=== PATIENT | female | born 1965 | race Caucasian/White ===

== ENCOUNTER 2022-09-09 11:42 | Emergency (ER) | payer BC ==
[~2022-09-09] VITALS: Ht 157.4 cm; Wt 73.0 kg
[2022-09-09 11:59] VITALS: BP 132/95
[2022-09-09] MEDS ORDERED: CELECOXIB100 M1 PO (12:00)
[2022-09-09] MEDS ORDERED: METOPROLOL SUCC25 M2 PO (12:01)
[2022-09-09] MEDS ORDERED: MONTELUKAST SOD10 MG PO (12:01)
[2022-09-09] MEDS ORDERED: BUSPIRONE HCL30 MG PO (12:01)
[2022-09-09] MEDS ORDERED: ESZOPICLONE3 MG PO (12:01)
[2022-09-09] MEDS ORDERED: SUMATRIPTAN SU100 M1 PO (12:02)
[2022-09-09] MEDS ORDERED: AZELASTINE137 MCG/0. NAS (12:02)
[2022-09-09] MEDS ORDERED: TRAMADOL HCL50 MG PO ×3 (13:05→13:41)
== END 2022-09-09 13:43 | disposition home or self-care (01) ==
LOC: ED 11:42
DX: S93.402A Sprain of unspecified ligament of left ankle, initial encounter (principal); G43.909 Migraine, unspecified, not intractable, without status migrainosus; Z88.8 Allergy status to other drugs, medicaments and biological substances; Z98.890 Other specified postprocedural states; Z98.51 Tubal ligation status; X50.1XXA Overexertion from prolonged static or awkward postures, initial encounter; Y93.89 Activity, other specified; Y92.89 Other specified places as the place of occurrence of the external cause; Y99.8 Other external cause status

== ENCOUNTER → 2023-03-13 | Outpatient (CLI) | payer BC ==
[~2023-03-13] MED LIST: AZELASTINE137 MCG/0. NAS; BUSPIRONE HCL30 MG PO; CELECOXIB100 M1 PO; ESZOPICLONE3 MG PO; METOPROLOL SUCC25 M2 PO; MONTELUKAST SOD10 MG PO; SUMATRIPTAN SU100 M1 PO; TRAMADOL HCL50 MG PO
== END | disposition home or self-care (01) ==
LOC: RAD 11:26
PROVIDERS: ATTEND Orthopaedic Surgery
DX: M79.662 Pain in left lower leg (principal)